=== PATIENT | male | born 1950 | race Caucasian/White ===

== ENCOUNTER → 2017-08-18 | Outpatient (CLI) | payer MEDICARE, SELFPAY ==
[~2017-08-18] MED LIST: CEPH500 PO; CLOZ100 PO; DOXY100C PO; GABA-529 PO; LITH300C3 PO
[2017-08-24 14:32] LABS: HEMATOCRIT 47.1 % (41-53); HEMOGLOBIN 15.4 g/dL (13.5-17.5); MEAN CORPUSCULAR HEMOGLOBIN 30.1 pg (26.0-34.0); MEAN CORPUSCULAR HGB CONC 32.7 G/dL (31.0-37.0); MEAN CORPUSCULAR VOLUME 92 fL (80-100); RED BLOOD CELL COUNT(AUTO) 5.11 MIL/uL (4.50-5.90)
[2017-08-24 14:33] LABS: BASOPHILS % (AUTO) 0.3 % (0.0-2.0); EOSINOPHILS % (AUTO) 0.1 % (1.0-6.0); LYMPHOCYTES # (AUTO) 1.4 K/uL (1.0-4.8); LYMPHOCYTES % (AUTO) 19.9 % (22.0-44.0); MONOCYTES # (AUTO) 0.7 K/uL (0.1-1.0); MONOCYTES % (AUTO) 9.2 % (2.0-9.0); NEUTROPHILS # (AUTO) 5.1 K/uL (1.8-7.7); NEUTROPHILS % (AUTO) 70.5 % (40.0-70.0); PLATELET COUNT (AUTO) 174 K/uL (150-450); RED CELL DISTRIBUTION WIDTH 18.2 % (11.5-14.5)
== END | disposition home or self-care (01) ==
LOC: LABPV 10:45
DX: F25.9 Schizoaffective disorder, unspecified (principal)

== ENCOUNTER → 2017-09-30 | Outpatient (CLI) | payer MEDICARE ==
[~2017-09-30] VITALS: Ht 167.6 cm; Wt 85.0 kg
[2017-09-30 14:35] VITALS: BP 138/75
== END | disposition home or self-care (01) ==
LOC: SRCNTR 14:33
PROVIDERS: ATTEND Internal Medicine Critical Care Medicine
DX: J96.11 Chronic respiratory failure with hypoxia (principal); F25.1 Schizoaffective disorder, depressive type; E78.1 Pure hyperglyceridemia; N40.0 Benign prostatic hyperplasia without lower urinary tract symptoms; K59.00 Constipation, unspecified; E11.9 Type 2 diabetes mellitus without complications
CPT/HCPCS: G0463

== ENCOUNTER → 2017-09-30 | Outpatient (CLI) | payer MEDICARE | END | disposition home or self-care (01) | LOC: RADPV 15:18 | PROVIDERS: ATTEND Internal Medicine Critical Care Medicine | DX: R91.8 Other nonspecific abnormal finding of lung field (principal) | CPT/HCPCS: 71046 ==

== ENCOUNTER → 2017-11-26 | Outpatient (CLI) | payer MEDICARE ==
[2017-11-26 13:13] VITALS: BP 117/55
== END | disposition home or self-care (01) ==
LOC: SRCNTR 12:52
PROVIDERS: ATTEND Internal Medicine Critical Care Medicine
DX: J96.11 Chronic respiratory failure with hypoxia (principal); R91.8 Other nonspecific abnormal finding of lung field; F25.1 Schizoaffective disorder, depressive type; E78.1 Pure hyperglyceridemia; E11.9 Type 2 diabetes mellitus without complications; N40.0 Benign prostatic hyperplasia without lower urinary tract symptoms; K59.00 Constipation, unspecified; I11.0 Hypertensive heart disease with heart failure; I50.9 Heart failure, unspecified
CPT/HCPCS: G0463

== ENCOUNTER → 2018-01-05 | Outpatient (CLI) | payer MEDICARE | END | disposition home or self-care (01) | LOC: MSR 14:34 | PROVIDERS: ATTEND Internal Medicine Critical Care Medicine | DX: J43.9 Emphysema, unspecified (principal); R91.8 Other nonspecific abnormal finding of lung field; I70.90 Unspecified atherosclerosis | CPT/HCPCS: 71250 ==

== ENCOUNTER → 2018-01-12 | Outpatient (CLI) | payer MEDICARE | END | disposition home or self-care (01) | LOC: RESP 13:37 | PROVIDERS: ATTEND Internal Medicine Critical Care Medicine | DX: J44.9 Chronic obstructive pulmonary disease, unspecified (principal) | CPT/HCPCS: 94010; 94726; 94727; 94729 ==

== ENCOUNTER → 2018-04-13 | Outpatient (CLI) | payer MEDICARE ==
[~2018-04-13] VITALS: Ht 175.3 cm; Wt 83.5 kg
[2018-04-13 13:45] VITALS: BP 110/57
== END | disposition home or self-care (01) ==
LOC: SRCNTR 13:27
PROVIDERS: ATTEND Internal Medicine Critical Care Medicine
DX: J96.11 Chronic respiratory failure with hypoxia (principal); Z23 Encounter for immunization; R91.8 Other nonspecific abnormal finding of lung field; F25.1 Schizoaffective disorder, depressive type; E11.9 Type 2 diabetes mellitus without complications; N40.0 Benign prostatic hyperplasia without lower urinary tract symptoms; K59.00 Constipation, unspecified; F17.210 Nicotine dependence, cigarettes, uncomplicated
CPT/HCPCS: 90471; 90686; G0463

== ENCOUNTER → 2018-06-16 | Outpatient (CLI) | payer MEDICARE ==
[~2018-06-16] VITALS: Ht 175.3 cm; Wt 83.5 kg
[2018-06-16 16:19] VITALS: BP 143/68
== END | disposition home or self-care (01) ==
LOC: SRCNTR 15:46
PROVIDERS: ATTEND Internal Medicine Critical Care Medicine
DX: J96.11 Chronic respiratory failure with hypoxia (principal); J18.9 Pneumonia, unspecified organism; R91.8 Other nonspecific abnormal finding of lung field; F25.1 Schizoaffective disorder, depressive type; E78.1 Pure hyperglyceridemia; E11.9 Type 2 diabetes mellitus without complications; N40.0 Benign prostatic hyperplasia without lower urinary tract symptoms; K59.00 Constipation, unspecified
CPT/HCPCS: G0463

== ENCOUNTER → 2018-09-24 | Outpatient (CLI) | payer MEDICARE ==
[~2018-09-24] VITALS: Ht 167.6 cm; Wt 81.0 kg
[2018-09-24 14:14] VITALS: BP 121/70
== END | disposition home or self-care (01) ==
LOC: SRCNTR 13:24
PROVIDERS: ATTEND Internal Medicine Critical Care Medicine
DX: J96.90 Respiratory failure, unspecified, unspecified whether with hypoxia or hypercapnia (principal); J18.9 Pneumonia, unspecified organism; F25.9 Schizoaffective disorder, unspecified; E78.1 Pure hyperglyceridemia; E11.8 Type 2 diabetes mellitus with unspecified complications; N40.0 Benign prostatic hyperplasia without lower urinary tract symptoms; K59.00 Constipation, unspecified
CPT/HCPCS: G0463

== ENCOUNTER → 2018-10-01 | Outpatient (CLI) | payer MEDICARE, OTHER | END | disposition home or self-care (01) | LOC: RADMN 09:01 | PROVIDERS: ATTEND Internal Medicine Critical Care Medicine | DX: J43.2 Centrilobular emphysema (principal); R91.8 Other nonspecific abnormal finding of lung field; I25.10 Atherosclerotic heart disease of native coronary artery without angina pectoris; I70.0 Atherosclerosis of aorta | CPT/HCPCS: 71250 ==

== ENCOUNTER 2019-03-09 11:34 | Inpatient (IN) | payer MEDICARE, OTHER ==
[~2019-03-09] VITALS: Ht 170.2 cm; Wt 78.0 kg
[2019-03-09] MEDS ORDERED: TAMS-1 PO (11:40)
[2019-03-09] MEDS ORDERED: ATOR40TA28 PO (11:40)
[2019-03-09] MEDS ORDERED: LEVO750T46 PO (11:40)
[2019-03-09] MEDS ORDERED: FURO40 PO (11:40)
[2019-03-09] MEDS ORDERED: DIVA-78 PO (11:40)
[2019-03-09] MEDS ORDERED: PRED20 PO (11:40)
[2019-03-09] MEDS ORDERED: ASPIRIN 81 MG CHEWABLE TABLET PO ONE (12:00)
[2019-03-09] MEDS ORDERED: ALBUTEROL SULFATE 2.5 MG/0.5 ML NEB SOLUTION NEB ONE (12:00)
[2019-03-09] MEDS ORDERED: MethylPREDNISolone SOD SUCC 125 MG/2 ML VIAL IVP ONE (12:00)
[2019-03-09] MEDS ORDERED: IPRATROPIUM BROMIDE 0.5 MG/2.5 ML NEB SOLUTION NEB ONE (12:00)
[2019-03-09 13:16] LABS: BASOPHILS % (AUTO) 0.1 % (0.0-2.0); EOSINOPHILS % (AUTO) 0 % (1.0-6.0); HEMATOCRIT 36.6 % (41-53); HEMOGLOBIN 11.9 g/dL (13.5-17.5); LYMPHOCYTES # (AUTO) 0.5 K/uL (1.0-4.8); LYMPHOCYTES % (AUTO) 5.4 % (22.0-44.0); MEAN CORPUSCULAR HEMOGLOBIN 30.2 pg (26.0-34.0); MEAN CORPUSCULAR HGB CONC 32.4 G/dL (31.0-37.0); MEAN CORPUSCULAR VOLUME 93 fL (80-100); MONOCYTES # (AUTO) 0.2 K/uL (0.1-1.0); MONOCYTES % (AUTO) 2.4 % (2.0-9.0); PLATELET COUNT (AUTO) 318 K/uL (150-450); RED BLOOD CELL COUNT(AUTO) 3.92 MIL/uL (4.50-5.90); RED CELL DISTRIBUTION WIDTH 14.4 % (11.5-14.5)
[2019-03-09 13:22] LABS: NEUTROPHILS % (AUTO) 92.1 % (40.0-70.0)
[2019-03-09 13:29] LABS: ANION GAP 3 mmol/L (8-16); CALCIUM, TOTAL 9.8 mg/dL (8.8-10.5); CARBON DIOXIDE 38 mmol/L (22-29); CHLORIDE 95 mmol/L (98-107); CREATININE 0.98 mg/dL (0.60-1.30); GLOMERULAR FILTR. RATE CALC > 60 mL/min (>60); GLUCOSE,RANDOM 109 mg/dL (70-110); POTASSIUM 4.4 mmol/L (3.5-5.1); SODIUM SERUM 136 mmol/L (136-145); UREA NITROGEN, BLOOD 12 mg/dL (7-18)
[2019-03-09 13:42] LABS: B-TYPE NATRIURETIC PEPTIDE 97 pg/mL (0-100)
[2019-03-09 13:54] LABS: ALANINE AMINOTRANSFERASE 24 U/L (12-78); ALBUMIN 2.7 g/dL (3.4-5.0); ALKALINE PHOSPHATASE 77 U/L (46-116); ASPARTATE AMINOTRANSFERASE 20 U/L (15-37); BILIRUBIN,TOTAL 0.3 mg/dL (0.1-1.0); CREATINE KINASE, TOTAL ONLY 89 U/L (39-308)
[2019-03-09] MEDS ORDERED: 0.9% SODIUM CHLORIDE 10 ML SYRINGE IVP PRN (15:30)
[2019-03-09] MEDS ORDERED: ONDANSETRON HCL 4 MG/2 ML VIAL IVP PRN ×2 (15:30→16:00)
[2019-03-09] MEDS ORDERED: ACETAMINOPHEN 325 MG TABLET PO PRN (15:30)
[2019-03-09 15:32] LABS: APPEARANCE,URINE CLEAR (CLEAR); BILIRUBIN,URINE NEGATIVE (NEGATIVE); GLUCOSE, URINE (UA) NEGATIVE (NEGATIVE); KETONES,URINE TRACE mg/dL (NEGATIVE); LEUKOCYTE ESTERASE ,URINE NEGATIVE (NEGATIVE); NITRATE,URINE NEGATIVE (NEGATIVE); OCCULT BLOOD,URINE NEGATIVE (NEGATIVE); PROTEIN,URINE SEE CONFIRM (NEGATIVE); UROBILINOGEN,URINE 0.2 mg/dL (<=1.0)
[2019-03-09 15:41] LABS: SULFOSALICYLIC ACID,URINE 3+ (Negative)
[2019-03-09 15:44] LABS: BACTERIA,URINE None Seen /HPF (None Seen); RBC,URINE None Seen /HPF (0-2); SQUAMOUS EPITHELIAL CELL,UR Rare /LPF (None Seen); WBC,URINE None Seen /HPF (0-5)
[2019-03-09] MEDS ORDERED: BISACODYL 10 MG RECTAL RECTAL SUPPOSITORY PR PRN (16:00)
[2019-03-09] MEDS ORDERED: MAGNESIUM HYDROXIDE SUSPENSION 30 ML UDCUP PO PRN (16:00)
[2019-03-09] MEDS: CefTRIAXone 1 GM/DEXTROSE 50 ML IV SCH (16:56)
[2019-03-09 17:37] LABS: ABG A-A DIFF O2 77.4 mmHg (10-20.0); ABG BASE EXCESS 12.5 mmol/L (-2.0-3.0); ABG CARBOXYHEMOGLOBIN 0.9 % (0.0-1.5); ABG HCO3 34.3 mmol/L (22.0-26.0); ABG METHEMOGLOBIN 0.3 % (0.0-1.5); ABG OXYGEN CONTENT 14.9 mL/dL (15.0-23.0); ABG OXYGEN SATURATION 90.2 % (95.0-98.0); ABG OXYHEMOGLOBIN 89.1 % (94.0-100.0); ABG PCO2 55 mmHg (35-45); ABG PH 7.445 (7.35-7.450); ABG TOTAL HEMOGLOBIN 11.9 G/dL (12.0-18.0); PO2, ARTERIAL BG 57.9 mmHg (79.0-87.0); SOURCE, BLOOD GAS ARTERIAL; TEMPERATURE, FAHRENHEIT, BG 98.6 FAHREN (96.0-98.6)
[2019-03-09 17:38] LABS: O2 DEVICE,BLOOD GAS CANNULA (ROOM AIR); SITE, BLOOD GAS RT RADIAL
[2019-03-09 18:25] VITALS: BP 127/86
[2019-03-09] MEDS ORDERED: SODIUM CHLORIDE 0.9% 1,000 ML IV ONE (18:26)
[2019-03-09] MEDS: AZITHROMYCIN 500 MG/NS 250 ML IV SCH (19:04)
[2019-03-09] MEDS: IPRATROPIUM BROMIDE 0.5 MG/2.5 ML NEB SOLUTION NEB PRN (19:59)
[2019-03-09] MEDS: ALBUTEROL SULFATE 2.5 MG/0.5 ML NEB SOLUTION NEB PRN (19:59)
[2019-03-09 20:03] VITALS: BP 143/87
[2019-03-09 21:04] VITALS: BP 138/85
[2019-03-09 23:13] VITALS: BP 133/73
[2019-03-10] MEDS: ALBUTEROL SULFATE 2.5 MG/0.5 ML NEB SOLUTION NEB PRN (02:15)
[2019-03-10] MEDS: IPRATROPIUM BROMIDE 0.5 MG/2.5 ML NEB SOLUTION NEB PRN (02:15)
[2019-03-10 06:28] VITALS: BP 131/97
[2019-03-10 07:13] VITALS: BP 162/92
[2019-03-10] MEDS: PANTOPRAZOLE SODIUM 40 MG DR TABLET PO SCH (09:15)
[2019-03-10] MEDS: ENOXAPARIN SODIUM 40 MG/0.4 ML PF SYRINGE SQ SCH (09:15)
[2019-03-10] MEDS: TAMSULOSIN HCL 0.4 MG CAPSULE PO SCH (09:16)
[2019-03-10] MEDS: NICOTINE 21 MG/24 HOUR PATCH TD SCH (09:29)
[2019-03-10 11:05] VITALS: BP 146/86
[2019-03-10 13:34] LABS: AMPHET/METH SCREEN,URINE NEGATIVE (NEGATIVE); BARBITURATE SCREEN, URINE NEGATIVE (NEGATIVE); BENZODIAZEPINES SCREEN,URINE NEGATIVE (NEGATIVE); CANNABINOID SCREEN,URINE NEGATIVE (NEGATIVE); COCAINE SCREEN,URINE NEGATIVE (NEGATIVE); METHADONE SCREEN, URINE NEGATIVE (NEGATIVE); OPIATE SCREEN,URINE NEGATIVE (NEGATIVE)
[2019-03-10 13:36] LABS: PHENCYCLIDINE SCREEN,URINE NEGATIVE (NEGATIVE)
[2019-03-10 15:25] VITALS: BP 131/61
[2019-03-10] MEDS ORDERED: GABAPENTIN 400 MG CAPSULE PO PRN (16:30)
[2019-03-10] MEDS: GABAPENTIN 300 MG CAPSULE PO SCH ×2 (17:09→20:29)
[2019-03-10] MEDS: CefTRIAXone 1 GM/DEXTROSE 50 ML IV SCH (17:09)
[2019-03-10] MEDS: AZITHROMYCIN 500 MG/NS 250 ML IV SCH (18:18)
[2019-03-10 19:33] VITALS: BP 136/74
[2019-03-10] MEDS: ACETAMINOPHEN 325 MG TABLET PO PRN (20:29)
[2019-03-10] MEDS: CloZAPine 100 MG TABLET PO SCH (20:29)
[2019-03-10] MEDS: LITHIUM CARBONATE 300 MG CAPSULE PO SCH (20:29)
[2019-03-10] MEDS: DIVALPROEX SODIUM 500 MG DR TABLET PO SCH (20:29)
[2019-03-10 23:35] VITALS: BP 119/76
[2019-03-11 04:20] VITALS: BP 101/64
[2019-03-11] MEDS: ALBUTEROL SULFATE 2.5 MG/0.5 ML NEB SOLUTION NEB PRN ×2 (07:11→21:02)
[2019-03-11] MEDS: IPRATROPIUM BROMIDE 0.5 MG/2.5 ML NEB SOLUTION NEB PRN ×2 (07:11→21:02)
[2019-03-11 07:20] LABS: LITHIUM 0.3 mmol/L (0.60-1.20)
[2019-03-11 08:03] VITALS: BP 140/87
[2019-03-11] MEDS: ENOXAPARIN SODIUM 40 MG/0.4 ML PF SYRINGE SQ SCH (09:00)
[2019-03-11 09:20] LABS: PROTHROMBIN TIME 10.5 SEC (9.4-11.6)
[2019-03-11] MEDS: TAMSULOSIN HCL 0.4 MG CAPSULE PO SCH (10:18)
[2019-03-11] MEDS: FUROSEMIDE 40 MG TABLET PO SCH (10:19)
[2019-03-11] MEDS: PANTOPRAZOLE SODIUM 40 MG DR TABLET PO SCH (10:19)
[2019-03-11] MEDS: GABAPENTIN 300 MG CAPSULE PO SCH ×3 (10:19→21:04)
[2019-03-11] MEDS: ATORVASTATIN CALCIUM 40 MG TABLET PO SCH (10:19)
[2019-03-11] MEDS: NICOTINE 21 MG/24 HOUR PATCH TD SCH (10:21)
[2019-03-11 10:46] LABS: GLUCOMETER DEV NAME(LOC) 5S.1; GLUCOSE,POINT OF CARE 103 MG/DL (70-110)
[2019-03-11 11:05] VITALS: BP 146/72
[2019-03-11] MEDS ORDERED: GABA-531 PO (12:34)
[2019-03-11] MEDS: CefTRIAXone 1 GM/DEXTROSE 50 ML IV SCH (15:16)
[2019-03-11 16:10] VITALS: BP 132/75
[2019-03-11] MEDS: AZITHROMYCIN 500 MG/NS 250 ML IV SCH (16:14)
[2019-03-11 20:01] VITALS: BP 136/76
[2019-03-11] MEDS: HEPARIN SODIUM,PORCINE 5,000 UNITS/ML VIAL SQ SCH (21:04)
[2019-03-11] MEDS: LITHIUM CARBONATE 300 MG CAPSULE PO SCH (21:04)
[2019-03-11] MEDS: CloZAPine 100 MG TABLET PO SCH (21:04)
[2019-03-11] MEDS: DIVALPROEX SODIUM 500 MG DR TABLET PO SCH (21:04)
[2019-03-12] VITALS (7 sets, daily range): BP systolic 128–139; BP diastolic 72–85
[2019-03-12] MEDS: IPRATROPIUM BROMIDE 0.5 MG/2.5 ML NEB SOLUTION NEB PRN ×3 (02:37→19:36)
[2019-03-12] MEDS: ALBUTEROL SULFATE 2.5 MG/0.5 ML NEB SOLUTION NEB PRN ×3 (02:37→19:36)
[2019-03-12] MEDS: TAMSULOSIN HCL 0.4 MG CAPSULE PO SCH (08:19)
[2019-03-12] MEDS: FUROSEMIDE 40 MG TABLET PO SCH (08:20)
[2019-03-12] MEDS: ATORVASTATIN CALCIUM 40 MG TABLET PO SCH (08:20)
[2019-03-12] MEDS: NICOTINE 21 MG/24 HOUR PATCH TD SCH (08:20)
[2019-03-12] MEDS: GABAPENTIN 300 MG CAPSULE PO SCH ×3 (08:20→20:30)
[2019-03-12] MEDS: PANTOPRAZOLE SODIUM 40 MG DR TABLET PO SCH (08:20)
[2019-03-12] MEDS: HEPARIN SODIUM,PORCINE 5,000 UNITS/ML VIAL SQ SCH ×2 (08:20→20:31)
[2019-03-12 12:11] LABS: LEGIONELLA PNEUMO AG URINE Negative (Negative); ORGANISM ID Not indicated.; S PNEUMO SOURCE Urine; STREP PNEUMONIAE AG URINE Negative (Negative); STREP.PNEUMO BODY FLUID CULT. Not Indicated
[2019-03-12] MEDS ORDERED: SODIUM CHLORIDE 0.9% 250 ML IV ONE (15:02)
[2019-03-12] MEDS: CefTRIAXone 1 GM/DEXTROSE 50 ML IV SCH (15:14)
[2019-03-12] MEDS: AZITHROMYCIN 500 MG/NS 250 ML IV SCH (16:27)
[2019-03-12] MEDS: CloZAPine 100 MG TABLET PO SCH (20:30)
[2019-03-12] MEDS: LITHIUM CARBONATE 300 MG CAPSULE PO SCH (20:30)
[2019-03-12] MEDS: DIVALPROEX SODIUM 500 MG DR TABLET PO SCH (20:30)
[2019-03-13] MEDS: ALBUTEROL SULFATE 2.5 MG/0.5 ML NEB SOLUTION NEB PRN ×3 (02:24→19:51)
[2019-03-13] MEDS: IPRATROPIUM BROMIDE 0.5 MG/2.5 ML NEB SOLUTION NEB PRN ×3 (02:24→19:51)
[2019-03-13 05:25] VITALS: BP 126/69
[2019-03-13 07:45] VITALS: BP 119/72
[2019-03-13] MEDS: PANTOPRAZOLE SODIUM 40 MG DR TABLET PO SCH (09:15)
[2019-03-13] MEDS: NICOTINE 21 MG/24 HOUR PATCH TD SCH (09:15)
[2019-03-13] MEDS: ATORVASTATIN CALCIUM 40 MG TABLET PO SCH (09:16)
[2019-03-13] MEDS: TAMSULOSIN HCL 0.4 MG CAPSULE PO SCH (09:16)
[2019-03-13] MEDS: HEPARIN SODIUM,PORCINE 5,000 UNITS/ML VIAL SQ SCH (09:16)
[2019-03-13] MEDS: GABAPENTIN 300 MG CAPSULE PO SCH ×3 (09:16→21:36)
[2019-03-13] MEDS: FUROSEMIDE 40 MG TABLET PO SCH (09:16)
[2019-03-13 11:35] VITALS: BP 127/74
[2019-03-13] MEDS: CefTRIAXone 1 GM/DEXTROSE 50 ML IV SCH (15:33)
[2019-03-13 15:37] VITALS: BP 130/78
[2019-03-13] MEDS: AZITHROMYCIN 500 MG/NS 250 ML IV SCH (17:10)
[2019-03-13 20:48] VITALS: BP 121/72
[2019-03-13] MEDS: LITHIUM CARBONATE 300 MG CAPSULE PO SCH (21:36)
[2019-03-13] MEDS: DIVALPROEX SODIUM 500 MG DR TABLET PO SCH (21:36)
[2019-03-13] MEDS: CloZAPine 100 MG TABLET PO SCH (21:36)
[2019-03-14 00:22] VITALS: BP 105/68
[2019-03-14] MEDS: IPRATROPIUM BROMIDE 0.5 MG/2.5 ML NEB SOLUTION NEB PRN ×5 (02:32→20:28)
[2019-03-14] MEDS: ALBUTEROL SULFATE 2.5 MG/0.5 ML NEB SOLUTION NEB PRN ×5 (02:32→20:28)
[2019-03-14 04:49] VITALS: BP 106/60
[2019-03-14 07:08] VITALS: BP 103/60
[2019-03-14] MEDS: ATORVASTATIN CALCIUM 40 MG TABLET PO SCH (09:00)
[2019-03-14] MEDS: GABAPENTIN 300 MG CAPSULE PO SCH ×3 (09:00→20:58)
[2019-03-14] MEDS: TAMSULOSIN HCL 0.4 MG CAPSULE PO SCH (09:00)
[2019-03-14] MEDS: NICOTINE 21 MG/24 HOUR PATCH TD SCH ×2 (09:00→17:29)
[2019-03-14] MEDS: FUROSEMIDE 40 MG TABLET PO SCH (09:00)
[2019-03-14] MEDS: PANTOPRAZOLE SODIUM 40 MG DR TABLET PO SCH (09:00)
[2019-03-14] MEDS ORDERED: MIDAZOLAM HCL 2 MG/2 ML VIAL ONE (09:23)
[2019-03-14] MEDS ORDERED: FentaNYL CITRATE-PF 100 MCG/2 ML VIAL ONE (09:23)
[2019-03-14] MEDS ORDERED: GELATIN SPONGE,ABSORBABLE 12-7 MM TP ONE (09:23)
[2019-03-14] MEDS ORDERED: MIDAZOLAM HCL 2 MG/2 ML VIAL IVP ONE (10:30)
[2019-03-14] MEDS ORDERED: FentaNYL CITRATE-PF 100 MCG/2 ML VIAL IVP ONE (10:30)
[2019-03-14 13:06] VITALS: BP 126/79
[2019-03-14] MEDS: AZITHROMYCIN 500 MG/NS 250 ML IV SCH (16:16)
[2019-03-14] MEDS: CefTRIAXone 1 GM/DEXTROSE 50 ML IV SCH (16:16)
[2019-03-14 17:20] VITALS: BP 118/72
[2019-03-14 20:26] VITALS: BP 129/73
[2019-03-14] MEDS: CloZAPine 100 MG TABLET PO SCH (20:58)
[2019-03-14] MEDS: LITHIUM CARBONATE 300 MG CAPSULE PO SCH (20:59)
[2019-03-14] MEDS: DIVALPROEX SODIUM 250 MG DR TABLET PO SCH (20:59)
[2019-03-14] MEDS ORDERED: DIVALPROEX SODIUM 250 MG DR TABLET PO SCH (21:00)
[2019-03-15] VITALS (7 sets, daily range): BP systolic 117–132; BP diastolic 61–80
[2019-03-15] MEDS: ALBUTEROL SULFATE 2.5 MG/0.5 ML NEB SOLUTION NEB PRN ×4 (02:15→18:47)
[2019-03-15] MEDS: IPRATROPIUM BROMIDE 0.5 MG/2.5 ML NEB SOLUTION NEB PRN ×4 (02:15→18:47)
[2019-03-15] MEDS: PANTOPRAZOLE SODIUM 40 MG DR TABLET PO SCH (08:23)
[2019-03-15] MEDS: TAMSULOSIN HCL 0.4 MG CAPSULE PO SCH (08:23)
[2019-03-15] MEDS: FUROSEMIDE 40 MG TABLET PO SCH (08:23)
[2019-03-15] MEDS: ATORVASTATIN CALCIUM 40 MG TABLET PO SCH (08:23)
[2019-03-15] MEDS: DIVALPROEX SODIUM 250 MG DR TABLET PO SCH ×4 (08:32→20:58)
[2019-03-15] MEDS: LITHIUM CARBONATE 300 MG CAPSULE PO SCH ×2 (08:34→20:58)
[2019-03-15] MEDS: GABAPENTIN 300 MG CAPSULE PO SCH ×3 (09:00→20:59)
[2019-03-15] MEDS: CefTRIAXone 1 GM/DEXTROSE 50 ML IV SCH (16:33)
[2019-03-15] MEDS: AZITHROMYCIN 500 MG/NS 250 ML IV SCH (18:11)
[2019-03-15] MEDS: CloZAPine 100 MG TABLET PO SCH (20:58)
[2019-03-16] MEDS: ALBUTEROL SULFATE 2.5 MG/0.5 ML NEB SOLUTION NEB PRN ×4 (01:11→17:21)
[2019-03-16] MEDS: IPRATROPIUM BROMIDE 0.5 MG/2.5 ML NEB SOLUTION NEB PRN ×4 (01:11→17:21)
[2019-03-16 04:22] VITALS: BP 137/74
[2019-03-16 07:10] LABS: BASOPHILS % (AUTO) 0.2 % (0.0-2.0); EOSINOPHILS % (AUTO) 0 % (1.0-6.0); HEMATOCRIT 32.4 % (41-53); HEMOGLOBIN 10.8 g/dL (13.5-17.5); LYMPHOCYTES # (AUTO) 1.2 K/uL (1.0-4.8); LYMPHOCYTES % (AUTO) 11.6 % (22.0-44.0); MEAN CORPUSCULAR HEMOGLOBIN 31.1 pg (26.0-34.0); MEAN CORPUSCULAR HGB CONC 33.2 G/dL (31.0-37.0); MEAN CORPUSCULAR VOLUME 94 fL (80-100); MONOCYTES # (AUTO) 0.7 K/uL (0.1-1.0); MONOCYTES % (AUTO) 6.9 % (2.0-9.0); NEUTROPHILS # (AUTO) 8.1 K/uL (1.8-7.7); NEUTROPHILS % (AUTO) 81.3 % (40.0-70.0); PLATELET COUNT (AUTO) 274 K/uL (150-450); RED BLOOD CELL COUNT(AUTO) 3.46 MIL/uL (4.50-5.90); RED CELL DISTRIBUTION WIDTH 14.6 % (11.5-14.5)
[2019-03-16 07:14] VITALS: BP 131/76
[2019-03-16 07:26] LABS: LITHIUM 0.47 mmol/L (0.60-1.20)
[2019-03-16] MEDS: ATORVASTATIN CALCIUM 40 MG TABLET PO SCH (08:47)
[2019-03-16] MEDS: GABAPENTIN 300 MG CAPSULE PO SCH ×2 (08:47→16:14)
[2019-03-16] MEDS: PANTOPRAZOLE SODIUM 40 MG DR TABLET PO SCH (08:48)
[2019-03-16] MEDS: FUROSEMIDE 40 MG TABLET PO SCH (08:48)
[2019-03-16] MEDS: TAMSULOSIN HCL 0.4 MG CAPSULE PO SCH (08:48)
[2019-03-16] MEDS: LITHIUM CARBONATE 300 MG CAPSULE PO SCH (10:30)
[2019-03-16] MEDS: DIVALPROEX SODIUM 250 MG DR TABLET PO SCH ×3 (10:30→16:14)
[2019-03-16] MEDS: NICOTINE 21 MG/24 HOUR PATCH TD SCH (10:31)
[2019-03-16 11:24] VITALS: BP 124/60
[2019-03-16] MEDS: ACETAMINOPHEN 325 MG TABLET PO PRN (13:22)
[2019-03-16 15:50] VITALS: BP 112/75
[2019-03-16] MEDS: CefTRIAXone 1 GM/DEXTROSE 50 ML IV SCH (16:14)
[2019-03-16] MEDS: AZITHROMYCIN 500 MG/NS 250 ML IV SCH (16:15)
[2019-03-16 19:35] VITALS: BP 132/72
== END 2019-03-16 19:55 | DRG 70 ==
LOC: IOPBV 11:35 → 6N 17:30 → 5S 17:45 → 4E 20:36 → 5S 22:31
PROVIDERS: ADMIT Internal Medicine Geriatric Medicine; ATTEND Internal Medicine Geriatric Medicine
PROC: 0BBG3ZX Excision of Left Upper Lung Lobe, Percutaneous Approach, Diagnostic (ICD-10-PCS; principal; 2019-03-14)
DX: G93.40 Encephalopathy, unspecified (principal); J18.9 Pneumonia, unspecified organism; E43 Unspecified severe protein-calorie malnutrition; J44.1 Chronic obstructive pulmonary disease with (acute) exacerbation; J91.8 Pleural effusion in other conditions classified elsewhere; R91.1 Solitary pulmonary nodule; N40.0 Benign prostatic hyperplasia without lower urinary tract symptoms; E78.5 Hyperlipidemia, unspecified; F25.1 Schizoaffective disorder, depressive type; E78.1 Pure hyperglyceridemia; E11.9 Type 2 diabetes mellitus without complications; D64.9 Anemia, unspecified; E78.00 Pure hypercholesterolemia, unspecified; F12.90 Cannabis use, unspecified, uncomplicated; I11.0 Hypertensive heart disease with heart failure; I50.9 Heart failure, unspecified; R06.89 Other abnormalities of breathing; R09.02 Hypoxemia; F17.210 Nicotine dependence, cigarettes, uncomplicated; R59.0 Localized enlarged lymph nodes; Z88.8 Allergy status to other drugs, medicaments and biological substances; Z80.7 Family history of other malignant neoplasms of lymphoid, hematopoietic and related tissues; Z87.01 Personal history of pneumonia (recurrent); Z99.81 Dependence on supplemental oxygen; Z68.26 Body mass index [BMI] 26.0-26.9, adult
CPT/HCPCS: 32405; 36600; 70450; 71250; 80159; 82805; 84145; 87015; 87040; 87070; 87101; 87205; 87206; 87449; 87899; 88305; 93005; 93306; 94640; 96374; 97116; 97162; 97530; J0456; J0696; J1644; J1650; J2250; J2930; J3010; J7030; J7050

== ENCOUNTER → 2019-05-04 | Outpatient (CLI) | payer MEDICARE ==
[~2019-05-04] MED LIST changes: +ATOR40TA28 PO; -CEPH500 PO; +DIVA-78 PO; -DOXY100C PO; +FURO40 PO; -GABA-529 PO; +GABA-531 PO; +LEVO750T46 PO; +PRED20 PO; +TAMS-1 PO
== END | disposition home or self-care (01) ==
LOC: RADMN 14:22
PROVIDERS: ATTEND Internal Medicine Critical Care Medicine
DX: R91.8 Other nonspecific abnormal finding of lung field (principal); J90 Pleural effusion, not elsewhere classified; I25.10 Atherosclerotic heart disease of native coronary artery without angina pectoris
CPT/HCPCS: 71250

== ENCOUNTER → 2019-07-15 | Outpatient (CLI) | payer MEDICARE, OTHER ==
[~2019-07-15] VITALS: Ht 167.6 cm; Wt 83.0 kg
[~2019-07-15] MED LIST changes: -LEVO750T46 PO; +LEVO750T68 PO
[2019-07-15 11:45] VITALS: BP 114/83
== END | disposition home or self-care (01) ==
LOC: SRCNTR 11:44
PROVIDERS: ATTEND Internal Medicine Critical Care Medicine
DX: J44.9 Chronic obstructive pulmonary disease, unspecified (principal); E11.9 Type 2 diabetes mellitus without complications; Z79.899 Other long term (current) drug therapy
CPT/HCPCS: G0463

== ENCOUNTER → 2019-07-21 | Outpatient (CLI) | payer MEDICARE, OTHER | END | disposition home or self-care (01) | LOC: RADMN 13:55 | PROVIDERS: ATTEND Internal Medicine Critical Care Medicine | DX: J44.9 Chronic obstructive pulmonary disease, unspecified (principal); I70.90 Unspecified atherosclerosis; M46.00 Spinal enthesopathy, site unspecified; R91.8 Other nonspecific abnormal finding of lung field; L72.3 Sebaceous cyst | CPT/HCPCS: 71250 ==

== ENCOUNTER → 2019-08-01 | Outpatient (CLI) | payer MEDICARE ==
[2019-08-02 16:25] LABS: HEMATOCRIT 37.6 % (41-53); HEMOGLOBIN 12.8 g/dL (13.5-17.5); LYMPHOCYTES % (AUTO) 9.8 % (22.0-44.0); MEAN CORPUSCULAR HEMOGLOBIN 31.3 pg (26.0-34.0); MEAN CORPUSCULAR HGB CONC 34.1 G/dL (31.0-37.0); MEAN CORPUSCULAR VOLUME 92 fL (80-100); NEUTROPHILS % (AUTO) 84.1 % (40.0-70.0); PLATELET COUNT (AUTO) 175 K/uL (150-450); RED BLOOD CELL COUNT(AUTO) 4.08 MIL/uL (4.50-5.90); RED CELL DISTRIBUTION WIDTH 14.2 % (11.5-14.5)
[2019-08-02 16:26] LABS: BASOPHILS % (AUTO) 0.1 % (0.0-2.0); EOSINOPHILS % (AUTO) 0 % (1.0-6.0); MONOCYTES # (AUTO) 0.6 K/uL (0.1-1.0); NEUTROPHILS # (AUTO) 8.5 K/uL (1.8-7.7)
== END | disposition home or self-care (01) ==
LOC: LABMN 15:05
PROVIDERS: ATTEND Psychiatry & Neurology Psychiatry
DX: F25.9 Schizoaffective disorder, unspecified (principal); Z88.8 Allergy status to other drugs, medicaments and biological substances

== ENCOUNTER → 2019-08-12 | Outpatient (CLI) | payer MEDICARE | END | disposition home or self-care (01) | LOC: LABPV 12:40 | PROVIDERS: ATTEND Psychiatry & Neurology Psychiatry | DX: F25.0 Schizoaffective disorder, bipolar type (principal) | CPT/HCPCS: 80159 ==

== ENCOUNTER → 2019-08-29 | Outpatient (CLI) | payer MEDICARE ==
[2019-08-29 17:01] LABS: BASOPHILS % (AUTO) 0.3 % (0.0-2.0); EOSINOPHILS % (AUTO) 0 % (1.0-6.0); HEMATOCRIT 37.9 % (41-53); HEMOGLOBIN 12.4 g/dL (13.5-17.5); LYMPHOCYTES # (AUTO) 1.6 K/uL (1.0-4.8); LYMPHOCYTES % (AUTO) 18.4 % (22.0-44.0); MEAN CORPUSCULAR HEMOGLOBIN 30.7 pg (26.0-34.0); MEAN CORPUSCULAR HGB CONC 32.8 G/dL (31.0-37.0); MEAN CORPUSCULAR VOLUME 94 fL (80-100); MONOCYTES # (AUTO) 0.6 K/uL (0.1-1.0); MONOCYTES % (AUTO) 7.5 % (2.0-9.0); NEUTROPHILS # (AUTO) 6.3 K/uL (1.8-7.7); NEUTROPHILS % (AUTO) 73.8 % (40.0-70.0); PLATELET COUNT (AUTO) 200 K/uL (150-450); RED BLOOD CELL COUNT(AUTO) 4.05 MIL/uL (4.50-5.90); RED CELL DISTRIBUTION WIDTH 14.4 % (11.5-14.5)
== END | disposition home or self-care (01) ==
LOC: LABPV 12:00
PROVIDERS: ATTEND Psychiatry & Neurology Psychiatry
DX: F25.9 Schizoaffective disorder, unspecified (principal)

== ENCOUNTER → 2019-09-27 | Outpatient (CLI) | payer MEDICARE, MEDICAID ==
[2019-09-27 13:47] LABS: BASOPHILS % (AUTO) 0.3 % (0.0-2.0); EOSINOPHILS % (AUTO) 0 % (1.0-6.0); HEMATOCRIT 38.5 % (41-53); HEMOGLOBIN 12.6 g/dL (13.5-17.5); LYMPHOCYTES # (AUTO) 1.4 K/uL (1.0-4.8); LYMPHOCYTES % (AUTO) 18.2 % (22.0-44.0); MEAN CORPUSCULAR HEMOGLOBIN 30.7 pg (26.0-34.0); MEAN CORPUSCULAR HGB CONC 32.7 G/dL (31.0-37.0); MEAN CORPUSCULAR VOLUME 94 fL (80-100); MONOCYTES # (AUTO) 0.5 K/uL (0.1-1.0); MONOCYTES % (AUTO) 5.9 % (2.0-9.0); NEUTROPHILS % (AUTO) 75.6 % (40.0-70.0); PLATELET COUNT (AUTO) 192 K/uL (150-450); RED CELL DISTRIBUTION WIDTH 14.8 % (11.5-14.5)
== END | disposition home or self-care (01) ==
LOC: LABPV 12:24
PROVIDERS: ATTEND Psychiatry & Neurology Psychiatry
DX: F25.9 Schizoaffective disorder, unspecified (principal)

== ENCOUNTER → 2019-11-25 | Outpatient (CLI) | payer MEDICARE, OTHER, SELFPAY ==
[~2019-11-25] MED LIST changes: -CLOZ100 PO; +CLOZ100T32 PO; +GABA-1181 PO; -GABA-531 PO
[2019-11-25 19:09] LABS: BASOPHILS % (AUTO) 0.2 % (0.0-2.0); EOSINOPHILS % (AUTO) 0 % (1.0-6.0); HEMATOCRIT 41.8 % (41-53); HEMOGLOBIN 13.9 g/dL (13.5-17.5); LYMPHOCYTES # (AUTO) 1.6 K/uL (1.0-4.8); LYMPHOCYTES % (AUTO) 16.5 % (22.0-44.0); MEAN CORPUSCULAR HEMOGLOBIN 31.1 pg (26.0-34.0); MEAN CORPUSCULAR HGB CONC 33.1 G/dL (31.0-37.0); MEAN CORPUSCULAR VOLUME 94 fL (80-100); MONOCYTES # (AUTO) 0.7 K/uL (0.1-1.0); MONOCYTES % (AUTO) 7.6 % (2.0-9.0); NEUTROPHILS # (AUTO) 7.1 K/uL (1.8-7.7); NEUTROPHILS % (AUTO) 75.7 % (40.0-70.0); PLATELET COUNT (AUTO) 207 K/uL (150-450); RED BLOOD CELL COUNT(AUTO) 4.45 MIL/uL (4.50-5.90); RED CELL DISTRIBUTION WIDTH 14.8 % (11.5-14.5)
== END | disposition home or self-care (01) ==
LOC: LABMN 10:00
PROVIDERS: ATTEND Psychiatry & Neurology Psychiatry
DX: F25.9 Schizoaffective disorder, unspecified (principal)

== ENCOUNTER → 2019-12-23 | Outpatient (CLI) | payer MEDICARE, OTHER, SELFPAY ==
[~2019-12-23] MED LIST changes: +DIVA-112 PO; -DIVA-78 PO
[2019-12-23 22:34] LABS: BASOPHILS % (AUTO) 0.7 % (0.0-2.0); EOSINOPHILS % (AUTO) 0 % (1.0-6.0); HEMATOCRIT 42.6 % (41-53); LYMPHOCYTES # (AUTO) 1.5 K/uL (1.0-4.8); LYMPHOCYTES % (AUTO) 22.6 % (22.0-44.0); MEAN CORPUSCULAR HGB CONC 32.8 G/dL (31.0-37.0); MEAN CORPUSCULAR VOLUME 95 fL (80-100); MONOCYTES # (AUTO) 0.4 K/uL (0.1-1.0); MONOCYTES % (AUTO) 6.4 % (2.0-9.0); NEUTROPHILS # (AUTO) 4.8 K/uL (1.8-7.7); NEUTROPHILS % (AUTO) 70.3 % (40.0-70.0); PLATELET COUNT (AUTO) 225 K/uL (150-450); RED BLOOD CELL COUNT(AUTO) 4.51 MIL/uL (4.50-5.90); RED CELL DISTRIBUTION WIDTH 14.9 % (11.5-14.5)
== END | disposition home or self-care (01) ==
LOC: LABMN 09:30
PROVIDERS: ATTEND Psychiatry & Neurology Psychiatry
DX: F25.9 Schizoaffective disorder, unspecified (principal)

== ENCOUNTER → 2020-01-20 | Outpatient (CLI) | payer MEDICARE, OTHER ==
[2020-01-20 14:41] LABS: BASOPHILS % (AUTO) 0.4 % (0.0-2.0); EOSINOPHILS % (AUTO) 0 % (1.0-6.0); HEMATOCRIT 42.7 % (41-53); LYMPHOCYTES # (AUTO) 1.3 K/uL (1.0-4.8); LYMPHOCYTES % (AUTO) 18.4 % (22.0-44.0); MEAN CORPUSCULAR HEMOGLOBIN 31.1 pg (26.0-34.0); MEAN CORPUSCULAR HGB CONC 32.9 G/dL (31.0-37.0); MEAN CORPUSCULAR VOLUME 95 fL (80-100); MONOCYTES # (AUTO) 0.5 K/uL (0.1-1.0); MONOCYTES % (AUTO) 6.5 % (2.0-9.0); NEUTROPHILS # (AUTO) 5.2 K/uL (1.8-7.7); NEUTROPHILS % (AUTO) 74.7 % (40.0-70.0); PLATELET COUNT (AUTO) 179 K/uL (150-450); RED BLOOD CELL COUNT(AUTO) 4.51 MIL/uL (4.50-5.90); RED CELL DISTRIBUTION WIDTH 14.8 % (11.5-14.5)
== END | disposition home or self-care (01) ==
LOC: LABPV 10:52
PROVIDERS: ATTEND Psychiatry & Neurology Psychiatry
DX: F25.9 Schizoaffective disorder, unspecified (principal)

== ENCOUNTER → 2020-02-17 | Outpatient (CLI) | payer MEDICARE, OTHER ==
[2020-02-17 16:14] LABS: BASOPHILS % (AUTO) 0.6 % (0.0-2.0); EOSINOPHILS % (AUTO) 0 % (1.0-6.0); HEMATOCRIT 44.4 % (41-53); HEMOGLOBIN 14.6 g/dL (13.5-17.5); LYMPHOCYTES # (AUTO) 1.9 K/uL (1.0-4.8); LYMPHOCYTES % (AUTO) 25.1 % (22.0-44.0); MEAN CORPUSCULAR HEMOGLOBIN 31.3 pg (26.0-34.0); MEAN CORPUSCULAR HGB CONC 32.9 G/dL (31.0-37.0); MEAN CORPUSCULAR VOLUME 95 fL (80-100); MONOCYTES # (AUTO) 0.6 K/uL (0.1-1.0); MONOCYTES % (AUTO) 7.2 % (2.0-9.0); NEUTROPHILS # (AUTO) 5.2 K/uL (1.8-7.7); NEUTROPHILS % (AUTO) 67.1 % (40.0-70.0); PLATELET COUNT (AUTO) 229 K/uL (150-450); RED BLOOD CELL COUNT(AUTO) 4.67 MIL/uL (4.50-5.90); RED CELL DISTRIBUTION WIDTH 15.4 % (11.5-14.5)
== END | disposition home or self-care (01) ==
LOC: LABPV 15:18
PROVIDERS: ATTEND Psychiatry & Neurology Psychiatry
DX: F25.9 Schizoaffective disorder, unspecified (principal)

== ENCOUNTER → 2020-02-21 | Outpatient (CLI) | payer MEDICARE, OTHER ==
[2020-02-21 12:49] LABS: BASOPHILS % (AUTO) 0.4 % (0.0-2.0); EOSINOPHILS % (AUTO) 0 % (1.0-6.0); HEMOGLOBIN 14.6 g/dL (13.5-17.5); LYMPHOCYTES # (AUTO) 1.5 K/uL (1.0-4.8); LYMPHOCYTES % (AUTO) 24.8 % (22.0-44.0); MEAN CORPUSCULAR HEMOGLOBIN 30.9 pg (26.0-34.0); MEAN CORPUSCULAR HGB CONC 32.4 G/dL (31.0-37.0); MEAN CORPUSCULAR VOLUME 95 fL (80-100); MONOCYTES # (AUTO) 0.5 K/uL (0.1-1.0); MONOCYTES % (AUTO) 8.2 % (2.0-9.0); NEUTROPHILS # (AUTO) 4.1 K/uL (1.8-7.7); NEUTROPHILS % (AUTO) 66.6 % (40.0-70.0); PLATELET COUNT (AUTO) 203 K/uL (150-450); RED BLOOD CELL COUNT(AUTO) 4.72 MIL/uL (4.50-5.90); RED CELL DISTRIBUTION WIDTH 15.5 % (11.5-14.5)
[2020-02-21 12:55] LABS: HEMOGLOBIN A1C 5.6 % (3.8-5.6)
[2020-02-21 13:04] LABS: BILIRUBIN,TOTAL 0.3 mg/dL (0.1-1.0); CALCIUM, TOTAL 9.1 mg/dL (8.8-10.5); CHOL/HDL RATIO 2.5 (4.2-7.3); CREATININE 1.22 mg/dL (0.60-1.30); POTASSIUM 4.2 mmol/L (3.5-5.1); TOTAL PROTEIN, SERUM 7.6 g/dL (6.4-8.2)
== END | disposition home or self-care (01) ==
LOC: LABPV 11:07
PROVIDERS: ATTEND Internal Medicine Geriatric Medicine
DX: N40.0 Benign prostatic hyperplasia without lower urinary tract symptoms (principal); E78.5 Hyperlipidemia, unspecified; J44.9 Chronic obstructive pulmonary disease, unspecified; E11.9 Type 2 diabetes mellitus without complications
CPT/HCPCS: 83036

== ENCOUNTER → 2020-03-16 | Outpatient (CLI) | payer MEDICARE, OTHER ==
[2020-03-16 20:25] LABS: BASOPHILS % (AUTO) 0.3 % (0.0-2.0); EOSINOPHILS % (AUTO) 0 % (1.0-6.0); HEMATOCRIT 48.8 % (41-53); LYMPHOCYTES # (AUTO) 1.7 K/uL (1.0-4.8); LYMPHOCYTES % (AUTO) 20.3 % (22.0-44.0); MEAN CORPUSCULAR HEMOGLOBIN 31.5 pg (26.0-34.0); MEAN CORPUSCULAR HGB CONC 32.8 G/dL (31.0-37.0); MEAN CORPUSCULAR VOLUME 96 fL (80-100); MONOCYTES # (AUTO) 0.6 K/uL (0.1-1.0); MONOCYTES % (AUTO) 6.5 % (2.0-9.0); NEUTROPHILS # (AUTO) 6.3 K/uL (1.8-7.7); NEUTROPHILS % (AUTO) 72.9 % (40.0-70.0); PLATELET COUNT (AUTO) 222 K/uL (150-450); RED BLOOD CELL COUNT(AUTO) 5.08 MIL/uL (4.50-5.90); RED CELL DISTRIBUTION WIDTH 15.7 % (11.5-14.5)
== END | disposition home or self-care (01) ==
LOC: LABPV 11:30
PROVIDERS: ATTEND Psychiatry & Neurology Psychiatry
DX: F25.9 Schizoaffective disorder, unspecified (principal)

== ENCOUNTER → 2020-04-13 | Outpatient (CLI) | payer MEDICARE, MEDICAID ==
[2020-04-13 16:29] LABS: BASOPHILS % (AUTO) 0.5 % (0.0-2.0); EOSINOPHILS % (AUTO) 0 % (1.0-6.0); HEMATOCRIT 51.5 % (41-53); LYMPHOCYTES # (AUTO) 1.7 K/uL (1.0-4.8); LYMPHOCYTES % (AUTO) 21.8 % (22.0-44.0); MEAN CORPUSCULAR HEMOGLOBIN 31.6 pg (26.0-34.0); MEAN CORPUSCULAR VOLUME 96 fL (80-100); MONOCYTES # (AUTO) 0.6 K/uL (0.1-1.0); MONOCYTES % (AUTO) 7.3 % (2.0-9.0); NEUTROPHILS # (AUTO) 5.5 K/uL (1.8-7.7); NEUTROPHILS % (AUTO) 70.4 % (40.0-70.0); PLATELET COUNT (AUTO) 262 K/uL (150-450); RED BLOOD CELL COUNT(AUTO) 5.39 MIL/uL (4.50-5.90); RED CELL DISTRIBUTION WIDTH 15.9 % (11.5-14.5)
== END | disposition home or self-care (01) ==
LOC: LABPV 12:56
PROVIDERS: ATTEND Psychiatry & Neurology Psychiatry
DX: F25.9 Schizoaffective disorder, unspecified (principal)

== ENCOUNTER → 2020-06-15 | Outpatient (CLI) | payer MEDICARE, MEDICAID ==
[2020-06-15 15:41] LABS: BASOPHILS % (AUTO) 0.3 % (0.0-2.0); EOSINOPHILS % (AUTO) 0 % (1.0-6.0); HEMATOCRIT 45.1 % (41-53); HEMOGLOBIN 14.8 g/dL (13.5-17.5); LYMPHOCYTES # (AUTO) 1.3 K/uL (1.0-4.8); MEAN CORPUSCULAR HEMOGLOBIN 30.9 pg (26.0-34.0); MEAN CORPUSCULAR HGB CONC 32.8 G/dL (31.0-37.0); MEAN CORPUSCULAR VOLUME 94 fL (80-100); MONOCYTES # (AUTO) 0.6 K/uL (0.1-1.0); MONOCYTES % (AUTO) 8.2 % (2.0-9.0); NEUTROPHILS # (AUTO) 5.8 K/uL (1.8-7.7); NEUTROPHILS % (AUTO) 74.5 % (40.0-70.0); PLATELET COUNT (AUTO) 190 K/uL (150-450); RED BLOOD CELL COUNT(AUTO) 4.79 MIL/uL (4.50-5.90); RED CELL DISTRIBUTION WIDTH 15.5 % (11.5-14.5)
== END | disposition home or self-care (01) ==
LOC: LABPV 13:02
PROVIDERS: ATTEND Psychiatry & Neurology Psychiatry
DX: F25.9 Schizoaffective disorder, unspecified (principal)

== ENCOUNTER 2020-06-16 10:06 | Inpatient (IN) | payer MEDICARE, MEDICAID ==
[~2020-06-16] VITALS: Ht 177.8 cm; Wt 83.8 kg
[2020-06-16] MEDS ORDERED: ALBUTEROL SULFATE 5 MG/ML 20 ML NEB SOLN [BULK] NEB ONE (10:30)
[2020-06-16 11:09] LABS: BASOPHILS % (AUTO) 0.2 % (0.0-2.0); EOSINOPHILS % (AUTO) 0 % (1.0-6.0); HEMATOCRIT 42.7 % (41-53); LYMPHOCYTES # (AUTO) 0.8 K/uL (1.0-4.8); LYMPHOCYTES % (AUTO) 6.4 % (22.0-44.0); MEAN CORPUSCULAR HGB CONC 32.8 G/dL (31.0-37.0); MEAN CORPUSCULAR VOLUME 94 fL (80-100); MONOCYTES # (AUTO) 0.9 K/uL (0.1-1.0); MONOCYTES % (AUTO) 7.4 % (2.0-9.0); NEUTROPHILS # (AUTO) 10.4 K/uL (1.8-7.7); PLATELET COUNT (AUTO) 169 K/uL (150-450); RED BLOOD CELL COUNT(AUTO) 4.53 MIL/uL (4.50-5.90); RED CELL DISTRIBUTION WIDTH 15.2 % (11.5-14.5)
[2020-06-16 11:23] LABS: ALANINE AMINOTRANSFERASE 12 U/L (12-78); ALBUMIN 2.9 g/dL (3.4-5.0); ALKALINE PHOSPHATASE 78 U/L (46-116); ANION GAP -2 mmol/L (8-16); ASPARTATE AMINOTRANSFERASE 12 U/L (15-37); BILIRUBIN,TOTAL 0.5 mg/dL (0.1-1.0); CALCIUM, TOTAL 9.2 mg/dL (8.8-10.5); CHLORIDE 98 mmol/L (98-107); CREATININE 1.28 mg/dL (0.60-1.30); GLOMERULAR FILTR. RATE CALC 56 mL/min (>60); GLUCOSE,RANDOM 106 mg/dL (70-110); LIPASE 43 U/L (73-393); POTASSIUM 4.4 mmol/L (3.5-5.1); SODIUM SERUM 137 mmol/L (136-145); TOTAL PROTEIN, SERUM 7.9 g/dL (6.4-8.2); UREA NITROGEN, BLOOD 23 mg/dL (7-18)
[2020-06-16 11:27] LABS: LACTIC ACID 0.4 mmol/L (0.4-2.0)
[2020-06-16 11:30] LABS: CARBON DIOXIDE 41 mmol/L (22-29)
[2020-06-16 11:35] LABS: B-TYPE NATRIURETIC PEPTIDE 93 pg/mL (0-100)
[2020-06-16] MEDS ORDERED: DEXAMETHASONE SOD PHOS 4 MG/ML 5 ML VIAL IVP ONE (12:15)
[2020-06-16] MEDS ORDERED: ALBUTEROL SULFATE/IPRATROPIUM 100-20 MCG/SPRAY 4 GM INHALER IH PRN (13:15)
[2020-06-16 13:21] LABS: ABG A-A DIFF O2 70.9 mmHg (10-20.0); ABG BASE EXCESS 19.6 mmol/L (-2.0-3.0); ABG HCO3 38.2 mmol/L (22.0-26.0); ABG METHEMOGLOBIN 0.1 % (0.0-1.5); ABG OXYGEN CONTENT 18.7 mL/dL (15.0-23.0); ABG OXYGEN SATURATION 96.7 % (95.0-98.0); ABG OXYHEMOGLOBIN 91.3 % (94.0-100.0); ABG PH 7.263 (7.35-7.450); ABG TOTAL HEMOGLOBIN 14.5 G/dL (12.0-18.0); PO2, ARTERIAL BG 93.2 mmHg (79.0-87.0); SOURCE, BLOOD GAS ARTERIAL; TEMPERATURE, FAHRENHEIT, BG 98.5 FAHREN (96.0-98.6)
[2020-06-16 13:22] LABS: ABG CARBOXYHEMOGLOBIN 5.5 % (0.0-1.5); ABG PCO2 105 mmHg (35-45); O2 DEVICE,BLOOD GAS CANNULA (ROOM AIR); SITE, BLOOD GAS LFT RADIAL
[2020-06-16 13:23] LABS: INFLUENZA TYPE A NEGATIVE FOR TYPE A (NEGATIVE); INFLUENZA TYPE B NEGATIVE FOR TYPE B (NEGATIVE)
[2020-06-16 13:30] LABS: COVID AG,FIA SOURCE NASOPHARYNGEAL
[2020-06-16] MEDS ORDERED: BENZONATATE 100 MG CAPSULE PO PRN (13:30)
[2020-06-16] MEDS ORDERED: DOCUSATE SODIUM 100 MG CAPSULE PO PRN (13:30)
[2020-06-16] MEDS ORDERED: ONDANSETRON HCL 4 MG/2 ML VIAL IVP PRN (13:30)
[2020-06-16] MEDS ORDERED: 0.9% SODIUM CHLORIDE 10 ML SYRINGE IVP PRN (13:30)
[2020-06-16] MEDS ORDERED: MAGNESIUM HYDROXIDE SUSPENSION 30 ML UDCUP PO PRN (13:30)
[2020-06-16] MEDS ORDERED: ACETAMINOPHEN 325 MG TABLET PO PRN (13:30)
[2020-06-16] MEDS ORDERED: BISACODYL 10 MG RECTAL RECTAL SUPPOSITORY PR PRN (13:30)
[2020-06-16] MEDS ORDERED: HEPARIN SODIUM,PORCINE 5,000 UNITS/ML VIAL IVP PRN ×2 (13:30)
[2020-06-16 13:46] LABS: LITHIUM < 0.20 mmol/L (0.60-1.20)
[2020-06-16 13:58] LABS: D-DIMER 0.27 mg/L FEU (0.00-0.50); PROTHROMBIN TIME 10.2 SEC (9.4-11.6)
[2020-06-16 14:03] LABS: FERRITIN 59 ng/mL (26-388)
[2020-06-16] MEDS: ALBUTEROL SULFATE/IPRATROPIUM 100-20 MCG/SPRAY 4 GM INHALER IH SCH ×2 (14:23→22:53)
[2020-06-16] MEDS: CefTRIAXone 1 GM/DEXTROSE 50 ML IV SCH (14:25)
[2020-06-16] MEDS: PANTOPRAZOLE SODIUM 40 MG DR TABLET PO SCH (14:25)
[2020-06-16] MEDS: DOXYCYCLINE HYCLATE 100 MG in DEXTROSE 5%-WATER 100 ML IV SCH (15:17)
[2020-06-16] MEDS: GABAPENTIN 300 MG CAPSULE PO SCH ×2 (19:44→21:00)
[2020-06-16] MEDS: MethylPREDNISolone SOD SUCC 40 MG/ML VIAL IVP SCH (19:44)
[2020-06-16] MEDS ORDERED: NICOTINE 21 MG/24 HOUR PATCH TD ONE (20:15)
[2020-06-16] MEDS: DIVALPROEX SODIUM 500 MG DR TABLET PO SCH (21:52)
[2020-06-16] MEDS: LITHIUM CARBONATE 300 MG CAPSULE PO SCH (21:53)
[2020-06-16] MEDS: CloZAPine 100 MG TABLET PO SCH (21:53)
[2020-06-17] MEDS: ALBUTEROL SULFATE/IPRATROPIUM 100-20 MCG/SPRAY 4 GM INHALER IH SCH ×4 (00:10→18:30)
[2020-06-17] MEDS: MethylPREDNISolone SOD SUCC 40 MG/ML VIAL IVP SCH ×4 (01:22→18:30)
[2020-06-17] MEDS: DOXYCYCLINE HYCLATE 100 MG in DEXTROSE 5%-WATER 100 ML IV SCH ×2 (03:12→16:15)
[2020-06-17 05:05] LABS: BASOPHILS % (AUTO) 0.6 % (0.0-2.0); EOSINOPHILS % (AUTO) 0.1 % (1.0-6.0); HEMOGLOBIN 14.4 g/dL (13.5-17.5); LYMPHOCYTES # (AUTO) 0.4 K/uL (1.0-4.8); LYMPHOCYTES % (AUTO) 6.1 % (22.0-44.0); MEAN CORPUSCULAR HEMOGLOBIN 30.9 pg (26.0-34.0); MEAN CORPUSCULAR HGB CONC 32.8 G/dL (31.0-37.0); MEAN CORPUSCULAR VOLUME 94 fL (80-100); MONOCYTES # (AUTO) 0.1 K/uL (0.1-1.0); MONOCYTES % (AUTO) 1.6 % (2.0-9.0); NEUTROPHILS # (AUTO) 5.3 K/uL (1.8-7.7); PLATELET COUNT (AUTO) 144 K/uL (150-450); RED BLOOD CELL COUNT(AUTO) 4.66 MIL/uL (4.50-5.90); RED CELL DISTRIBUTION WIDTH 14.9 % (11.5-14.5)
[2020-06-17 05:07] LABS: NEUTROPHILS % (AUTO) 91.6 % (40.0-70.0)
[2020-06-17 05:26] LABS: ALANINE AMINOTRANSFERASE 10 U/L (12-78); ALBUMIN 2.9 g/dL (3.4-5.0); ALKALINE PHOSPHATASE 82 U/L (46-116); ANION GAP 8 mmol/L (8-16); ASPARTATE AMINOTRANSFERASE 14 U/L (15-37); BILIRUBIN,TOTAL 0.4 mg/dL (0.1-1.0); C-REACTIVE PROTEIN QUANT 3.13 mg/dL (0.00-0.30); CALCIUM, TOTAL 9.4 mg/dL (8.8-10.5); CARBON DIOXIDE 40 mmol/L (22-29); CHLORIDE 94 mmol/L (98-107); CREATININE 1.09 mg/dL (0.60-1.30); FERRITIN 69 ng/mL (26-388); GLOMERULAR FILTR. RATE CALC > 60 mL/min (>60); GLUCOSE,RANDOM 165 mg/dL (70-110); POTASSIUM 4.4 mmol/L (3.5-5.1); SODIUM SERUM 142 mmol/L (136-145); TOTAL PROTEIN, SERUM 8.2 g/dL (6.4-8.2); UREA NITROGEN, BLOOD 27 mg/dL (7-18)
[2020-06-17] MEDS: TAMSULOSIN HCL 0.4 MG CAPSULE PO SCH (09:02)
[2020-06-17] MEDS: PANTOPRAZOLE SODIUM 40 MG DR TABLET PO SCH (09:02)
[2020-06-17 10:04] LABS: PROTHROMBIN TIME 10.2 SEC (9.4-11.6)
[2020-06-17] MEDS: FUROSEMIDE 40 MG TABLET PO SCH (10:22)
[2020-06-17] MEDS: GABAPENTIN 300 MG CAPSULE PO SCH ×3 (10:23→20:53)
[2020-06-17] MEDS: ATORVASTATIN CALCIUM 40 MG TABLET PO SCH (10:25)
[2020-06-17 13:42] VITALS: BP 152/80
[2020-06-17] MEDS ORDERED: SODIUM CHLORIDE 0.9% 250 ML IV ONE (14:44)
[2020-06-17] MEDS: CefTRIAXone 1 GM/DEXTROSE 50 ML IV SCH (14:55)
[2020-06-17 16:04] VITALS: BP 131/80
[2020-06-17] MEDS: NICOTINE 14 MG/24 HOUR PATCH TD SCH (16:24)
[2020-06-17 19:33] VITALS: BP 134/73
[2020-06-17] MEDS: DIVALPROEX SODIUM 500 MG DR TABLET PO SCH (20:53)
[2020-06-17] MEDS: LITHIUM CARBONATE 300 MG CAPSULE PO SCH (20:53)
[2020-06-17] MEDS: CloZAPine 100 MG TABLET PO SCH (20:55)
[2020-06-17] MEDS: HEPARIN SODIUM 25000 UNITS/D5W 250 ML IV PRN (21:26)
[2020-06-18 00:15] VITALS: BP 150/89
[2020-06-18] MEDS: MethylPREDNISolone SOD SUCC 40 MG/ML VIAL IVP SCH ×4 (00:25→17:39)
[2020-06-18] MEDS ORDERED: SODIUM CHLORIDE 0.9% 500 ML IV ONE (02:11)
[2020-06-18] MEDS: DOXYCYCLINE HYCLATE 100 MG in DEXTROSE 5%-WATER 100 ML IV SCH ×2 (02:15→14:10)
[2020-06-18 03:49] LABS: BASOPHILS % (AUTO) 0.1 % (0.0-2.0); EOSINOPHILS % (AUTO) 0 % (1.0-6.0); HEMATOCRIT 41.4 % (41-53); HEMOGLOBIN 13.7 g/dL (13.5-17.5); LYMPHOCYTES # (AUTO) 0.6 K/uL (1.0-4.8); LYMPHOCYTES % (AUTO) 6.5 % (22.0-44.0); MEAN CORPUSCULAR HEMOGLOBIN 31.1 pg (26.0-34.0); MEAN CORPUSCULAR HGB CONC 33.1 G/dL (31.0-37.0); MEAN CORPUSCULAR VOLUME 94 fL (80-100); MONOCYTES # (AUTO) 0.2 K/uL (0.1-1.0); MONOCYTES % (AUTO) 2.6 % (2.0-9.0); NEUTROPHILS # (AUTO) 7.8 K/uL (1.8-7.7); PLATELET COUNT (AUTO) 159 K/uL (150-450); RED BLOOD CELL COUNT(AUTO) 4.42 MIL/uL (4.50-5.90); RED CELL DISTRIBUTION WIDTH 15.2 % (11.5-14.5)
[2020-06-18 03:57] VITALS: BP 135/75
[2020-06-18 03:59] LABS: NEUTROPHILS % (AUTO) 90.8 % (40.0-70.0)
[2020-06-18 04:01] LABS: D-DIMER 0.19 mg/L FEU (0.00-0.50)
[2020-06-18 04:16] LABS: ALBUMIN 2.6 g/dL (3.4-5.0); BILIRUBIN,TOTAL 0.2 mg/dL (0.1-1.0); CALCIUM, TOTAL 9.3 mg/dL (8.8-10.5); CREATININE 1.23 mg/dL (0.60-1.30); POTASSIUM 4.6 mmol/L (3.5-5.1); TOTAL PROTEIN, SERUM 7.2 g/dL (6.4-8.2)
[2020-06-18] MEDS: ALBUTEROL SULFATE/IPRATROPIUM 100-20 MCG/SPRAY 4 GM INHALER IH SCH ×4 (06:15→17:40)
[2020-06-18] MEDS: FUROSEMIDE 40 MG TABLET PO SCH (08:29)
[2020-06-18] MEDS: ATORVASTATIN CALCIUM 40 MG TABLET PO SCH (08:29)
[2020-06-18] MEDS: PANTOPRAZOLE SODIUM 40 MG DR TABLET PO SCH (08:29)
[2020-06-18] MEDS: TAMSULOSIN HCL 0.4 MG CAPSULE PO SCH (08:29)
[2020-06-18] MEDS: GABAPENTIN 300 MG CAPSULE PO SCH ×3 (08:29→20:08)
[2020-06-18] MEDS: NICOTINE 14 MG/24 HOUR PATCH TD SCH (08:30)
[2020-06-18 08:41] VITALS: BP 150/84
[2020-06-18 11:33] VITALS: BP 120/78
[2020-06-18] MEDS: CefTRIAXone 1 GM/DEXTROSE 50 ML IV SCH (12:52)
[2020-06-18] MEDS: HEPARIN SODIUM 25000 UNITS/D5W 250 ML IV PRN (14:21)
[2020-06-18 16:50] VITALS: BP 146/85
[2020-06-18] MEDS: CloZAPine 100 MG TABLET PO SCH (20:08)
[2020-06-18] MEDS: DIVALPROEX SODIUM 500 MG DR TABLET PO SCH (20:09)
[2020-06-18] MEDS: LITHIUM CARBONATE 300 MG CAPSULE PO SCH (20:09)
[2020-06-18 21:00] VITALS: BP 140/78
[2020-06-19] VITALS: BP 121/62
[2020-06-19] MEDS: MethylPREDNISolone SOD SUCC 40 MG/ML VIAL IVP SCH ×4 (00:30→18:17)
[2020-06-19] MEDS: DOXYCYCLINE HYCLATE 100 MG in DEXTROSE 5%-WATER 100 ML IV SCH ×2 (03:04→15:18)
[2020-06-19 04:00] VITALS: BP 145/70
[2020-06-19] MEDS: ALBUTEROL SULFATE/IPRATROPIUM 100-20 MCG/SPRAY 4 GM INHALER IH SCH ×4 (05:53→18:17)
[2020-06-19 06:49] LABS: EOSINOPHILS % (AUTO) 0 % (1.0-6.0); HEMATOCRIT 39.7 % (41-53); HEMOGLOBIN 13.2 g/dL (13.5-17.5); LYMPHOCYTES # (AUTO) 0.3 K/uL (1.0-4.8); LYMPHOCYTES % (AUTO) 3.8 % (22.0-44.0); MEAN CORPUSCULAR HEMOGLOBIN 30.7 pg (26.0-34.0); MEAN CORPUSCULAR HGB CONC 33.1 G/dL (31.0-37.0); MEAN CORPUSCULAR VOLUME 93 fL (80-100); MONOCYTES # (AUTO) 0.2 K/uL (0.1-1.0); MONOCYTES % (AUTO) 2.4 % (2.0-9.0); NEUTROPHILS # (AUTO) 8.5 K/uL (1.8-7.7); PLATELET COUNT (AUTO) 165 K/uL (150-450); RED BLOOD CELL COUNT(AUTO) 4.28 MIL/uL (4.50-5.90); RED CELL DISTRIBUTION WIDTH 15.1 % (11.5-14.5)
[2020-06-19 07:06] LABS: NEUTROPHILS % (AUTO) 93.8 % (40.0-70.0)
[2020-06-19 07:07] LABS: D-DIMER 0.2 mg/L FEU (0.00-0.50)
[2020-06-19 07:39] VITALS: BP 138/66
[2020-06-19 07:43] LABS: ALANINE AMINOTRANSFERASE 12 U/L (12-78); ALBUMIN 2.5 g/dL (3.4-5.0); ALKALINE PHOSPHATASE 60 U/L (46-116); ANION GAP -3 mmol/L (8-16); ASPARTATE AMINOTRANSFERASE 14 U/L (15-37); BILIRUBIN,TOTAL 0.3 mg/dL (0.1-1.0); CALCIUM, TOTAL 9.1 mg/dL (8.8-10.5); CHLORIDE 97 mmol/L (98-107); CHOL/HDL RATIO 2.7 (4.2-7.3); CHOLESTEROL 109 mg/dL (131-200); CREATININE 1.07 mg/dL (0.60-1.30); FERRITIN 65 ng/mL (26-388); GLOMERULAR FILTR. RATE CALC > 60 mL/min (>60); GLUCOSE,RANDOM 159 mg/dL (70-110); HDL CHOLESTEROL 40 mg/dL (40-60); LDL CHOL (CALC.) 39 mg/dL (0-130); POTASSIUM 4.3 mmol/L (3.5-5.1); SODIUM SERUM 135 mmol/L (136-145); TOTAL PROTEIN, SERUM 6.7 g/dL (6.4-8.2); TRIGLYCERIDES 149 mg/dL (15-150); UREA NITROGEN, BLOOD 34 mg/dL (7-18)
[2020-06-19 07:58] LABS: CARBON DIOXIDE 41 mmol/L (22-29)
[2020-06-19] MEDS: TAMSULOSIN HCL 0.4 MG CAPSULE PO SCH (09:05)
[2020-06-19] MEDS: GABAPENTIN 300 MG CAPSULE PO SCH ×3 (09:05→20:37)
[2020-06-19] MEDS: FUROSEMIDE 40 MG TABLET PO SCH (09:05)
[2020-06-19] MEDS: NICOTINE 14 MG/24 HOUR PATCH TD SCH (09:05)
[2020-06-19] MEDS: ATORVASTATIN CALCIUM 40 MG TABLET PO SCH (09:06)
[2020-06-19] MEDS: PANTOPRAZOLE SODIUM 40 MG DR TABLET PO SCH (09:06)
[2020-06-19 12:15] VITALS: BP 110/56
[2020-06-19] MEDS ORDERED: DEXTROSE 50%-WATER 25 GM/50 ML SYRINGE IVP PRN (13:30)
[2020-06-19] MEDS: CefTRIAXone 1 GM/DEXTROSE 50 ML IV SCH (14:05)
[2020-06-19] MEDS: HEPARIN SODIUM 25000 UNITS/D5W 250 ML IV PRN (14:15)
[2020-06-19 16:05] VITALS: BP 145/72
[2020-06-19] MEDS ORDERED: GABAPENTIN 300 MG CAPSULE PO PRN (20:30)
[2020-06-19] MEDS ORDERED: OLANZapine 5 MG RAPDIS TABLET PO PRN (20:30)
[2020-06-19] MEDS: CloZAPine 100 MG TABLET PO SCH (20:37)
[2020-06-19] MEDS: LITHIUM CARBONATE 300 MG CAPSULE PO SCH (20:37)
[2020-06-19] MEDS: DIVALPROEX SODIUM 500 MG DR TABLET PO SCH (20:37)
[2020-06-19] MEDS: INSULIN LISPRO 100 UNITS/ML SQ PRN (20:37)
[2020-06-19 21:21] VITALS: BP 131/78
[2020-06-20] MEDS: ALBUTEROL SULFATE/IPRATROPIUM 100-20 MCG/SPRAY 4 GM INHALER IH SCH ×4 (00:53→17:45)
[2020-06-20] MEDS: MethylPREDNISolone SOD SUCC 40 MG/ML VIAL IVP SCH ×4 (00:53→17:45)
[2020-06-20] MEDS: DOXYCYCLINE HYCLATE 100 MG in DEXTROSE 5%-WATER 100 ML IV SCH ×2 (03:27→14:07)
[2020-06-20 04:10] VITALS: BP 127/68
[2020-06-20 05:07] LABS: GLUCOMETER DEV NAME(LOC) 5S.1; GLUCOSE,POINT OF CARE 186 MG/DL (70-110)
[2020-06-20 06:46] LABS: BASOPHILS % (AUTO) 0.1 % (0.0-2.0); EOSINOPHILS % (AUTO) 0 % (1.0-6.0); HEMATOCRIT 42.8 % (41-53); HEMOGLOBIN 13.9 g/dL (13.5-17.5); LYMPHOCYTES # (AUTO) 0.3 K/uL (1.0-4.8); LYMPHOCYTES % (AUTO) 4.4 % (22.0-44.0); MEAN CORPUSCULAR HEMOGLOBIN 30.7 pg (26.0-34.0); MEAN CORPUSCULAR HGB CONC 32.6 G/dL (31.0-37.0); MEAN CORPUSCULAR VOLUME 94 fL (80-100); MONOCYTES # (AUTO) 0.2 K/uL (0.1-1.0); MONOCYTES % (AUTO) 2.9 % (2.0-9.0); NEUTROPHILS # (AUTO) 6.7 K/uL (1.8-7.7); PLATELET COUNT (AUTO) 167 K/uL (150-450); RED BLOOD CELL COUNT(AUTO) 4.53 MIL/uL (4.50-5.90); RED CELL DISTRIBUTION WIDTH 15.3 % (11.5-14.5)
[2020-06-20 07:36] LABS: ALANINE AMINOTRANSFERASE 16 U/L (12-78); ALBUMIN 2.6 g/dL (3.4-5.0); ALKALINE PHOSPHATASE 57 U/L (46-116); ASPARTATE AMINOTRANSFERASE 14 U/L (15-37); BILIRUBIN,TOTAL 0.3 mg/dL (0.1-1.0); C-REACTIVE PROTEIN QUANT 0.07 mg/dL (0.00-0.30); CALCIUM, TOTAL 9.5 mg/dL (8.8-10.5); CREATININE 1.06 mg/dL (0.60-1.30); FERRITIN 68 ng/mL (26-388); GLOMERULAR FILTR. RATE CALC > 60 mL/min (>60); GLUCOSE,RANDOM 208 mg/dL (70-110); TOTAL PROTEIN, SERUM 6.9 g/dL (6.4-8.2); UREA NITROGEN, BLOOD 31 mg/dL (7-18)
[2020-06-20 07:43] LABS: NEUTROPHILS % (AUTO) 92.6 % (40.0-70.0)
[2020-06-20 07:49] LABS: D-DIMER 0.19 mg/L FEU (0.00-0.50)
[2020-06-20 08:22] LABS: ANION GAP 5 mmol/L (8-16); CHLORIDE 95 mmol/L (98-107); POTASSIUM 4.7 mmol/L (3.5-5.1); SODIUM SERUM 137 mmol/L (136-145)
[2020-06-20 09:36] VITALS: BP 119/64
[2020-06-20] MEDS: ATORVASTATIN CALCIUM 40 MG TABLET PO SCH (10:38)
[2020-06-20] MEDS: PANTOPRAZOLE SODIUM 40 MG DR TABLET PO SCH (10:38)
[2020-06-20] MEDS: FUROSEMIDE 40 MG TABLET PO SCH (10:38)
[2020-06-20] MEDS: TAMSULOSIN HCL 0.4 MG CAPSULE PO SCH (10:38)
[2020-06-20] MEDS: GABAPENTIN 300 MG CAPSULE PO SCH ×3 (10:38→20:13)
[2020-06-20] MEDS: NICOTINE 14 MG/24 HOUR PATCH TD SCH (10:39)
[2020-06-20] MEDS: CefTRIAXone 1 GM/DEXTROSE 50 ML IV SCH (12:21)
[2020-06-20 12:34] VITALS: BP 147/91
[2020-06-20 13:58] LABS: GLUCOMETER DEV NAME(LOC) 5S.2B; GLUCOSE,POINT OF CARE 158 MG/DL (70-110)
[2020-06-20] MEDS: INSULIN LISPRO 100 UNITS/ML SQ PRN ×2 (14:10→20:54)
[2020-06-20 16:00] VITALS: BP 134/82
[2020-06-20] MEDS: DIVALPROEX SODIUM 250 MG DR TABLET PO SCH ×2 (17:45→20:13)
[2020-06-20] MEDS: CloZAPine 100 MG TABLET PO SCH (20:13)
[2020-06-20] MEDS: LITHIUM CARBONATE 300 MG CAPSULE PO SCH (20:13)
[2020-06-20 21:53] VITALS: BP 145/70
[2020-06-21] MEDS: MethylPREDNISolone SOD SUCC 40 MG/ML VIAL IVP SCH ×4 (00:23→18:07)
[2020-06-21] MEDS: ALBUTEROL SULFATE/IPRATROPIUM 100-20 MCG/SPRAY 4 GM INHALER IH SCH ×4 (00:24→18:07)
[2020-06-21 01:00] LABS: GLUCOMETER DEV NAME(LOC) 5S.2B; GLUCOSE,POINT OF CARE 252 MG/DL (70-110)
[2020-06-21 01:12] VITALS: BP 135/55
[2020-06-21] MEDS: DOXYCYCLINE HYCLATE 100 MG in DEXTROSE 5%-WATER 100 ML IV SCH ×2 (02:14→16:25)
[2020-06-21 04:32] VITALS: BP 135/61
[2020-06-21] MEDS: DIVALPROEX SODIUM 250 MG DR TABLET PO SCH ×4 (08:05→20:02)
[2020-06-21] MEDS: FUROSEMIDE 40 MG TABLET PO SCH (08:05)
[2020-06-21] MEDS: PANTOPRAZOLE SODIUM 40 MG DR TABLET PO SCH (08:05)
[2020-06-21] MEDS: TAMSULOSIN HCL 0.4 MG CAPSULE PO SCH (08:05)
[2020-06-21] MEDS: ATORVASTATIN CALCIUM 40 MG TABLET PO SCH (08:05)
[2020-06-21] MEDS: NICOTINE 14 MG/24 HOUR PATCH TD SCH (08:05)
[2020-06-21] MEDS: GABAPENTIN 300 MG CAPSULE PO SCH ×3 (08:05→20:01)
[2020-06-21 08:23] VITALS: BP 125/61
[2020-06-21] MEDS: ENOXAPARIN SODIUM 40 MG/0.4 ML PF SYRINGE SQ SCH (08:25)
[2020-06-21 11:20] LABS: CALCIUM, TOTAL 9.4 mg/dL (8.8-10.5); CREATININE 1.27 mg/dL (0.60-1.30); POTASSIUM 4.8 mmol/L (3.5-5.1)
[2020-06-21 11:23] LABS: PROTHROMBIN TIME 10.7 SEC (9.4-11.6)
[2020-06-21] MEDS ORDERED: FentaNYL CITRATE-PF 100 MCG/2 ML VIAL ONE (11:44)
[2020-06-21] MEDS ORDERED: MIDAZOLAM HCL 2 MG/2 ML VIAL ONE (11:44)
[2020-06-21] MEDS ORDERED: FentaNYL CITRATE-PF 100 MCG/2 ML VIAL IVP ONE (12:45)
[2020-06-21] MEDS ORDERED: MIDAZOLAM HCL 2 MG/2 ML VIAL IVP ONE (12:45)
[2020-06-21] MEDS: CefTRIAXone 1 GM/DEXTROSE 50 ML IV SCH (15:25)
[2020-06-21 16:13] LABS: GLUCOMETER DEV NAME(LOC) 5S.2B; GLUCOSE,POINT OF CARE 190 MG/DL (70-110)
[2020-06-21 16:26] VITALS: BP 150/92
[2020-06-21] MEDS: CloZAPine 100 MG TABLET PO SCH (20:02)
[2020-06-21] MEDS: LITHIUM CARBONATE 300 MG CAPSULE PO SCH (20:02)
[2020-06-21] MEDS: INSULIN LISPRO 100 UNITS/ML SQ PRN (20:09)
[2020-06-21 20:11] LABS: GLUCOMETER DEV NAME(LOC) 5N.3; GLUCOSE,POINT OF CARE 192 MG/DL (70-110)
[2020-06-21 20:37] VITALS: BP 137/95
[2020-06-22] MEDS: ALBUTEROL SULFATE/IPRATROPIUM 100-20 MCG/SPRAY 4 GM INHALER IH SCH ×4 (00:09→17:18)
[2020-06-22] MEDS: MethylPREDNISolone SOD SUCC 40 MG/ML VIAL IVP SCH ×4 (00:10→17:18)
[2020-06-22 00:26] VITALS: BP 150/89
[2020-06-22] MEDS ORDERED: SODIUM CHLORIDE 0.9% 250 ML IV ONE (01:10)
[2020-06-22 02:18] LABS: GLUCOMETER DEV NAME(LOC) 5S.2B; GLUCOSE,POINT OF CARE 236 MG/DL (70-110)
[2020-06-22] MEDS: DOXYCYCLINE HYCLATE 100 MG in DEXTROSE 5%-WATER 100 ML IV SCH ×2 (03:22→15:26)
[2020-06-22 05:12] VITALS: BP 153/77
[2020-06-22 07:59] VITALS: BP 144/72
[2020-06-22] MEDS: DIVALPROEX SODIUM 250 MG DR TABLET PO SCH ×4 (09:06→20:00)
[2020-06-22] MEDS: ENOXAPARIN SODIUM 40 MG/0.4 ML PF SYRINGE SQ SCH (09:07)
[2020-06-22] MEDS: NICOTINE 14 MG/24 HOUR PATCH TD SCH (09:07)
[2020-06-22] MEDS: GABAPENTIN 300 MG CAPSULE PO SCH ×3 (09:07→20:01)
[2020-06-22] MEDS: PANTOPRAZOLE SODIUM 40 MG DR TABLET PO SCH (09:08)
[2020-06-22] MEDS: FUROSEMIDE 40 MG TABLET PO SCH (09:08)
[2020-06-22] MEDS: MONTELUKAST SODIUM 10 MG TABLET PO SCH (09:08)
[2020-06-22] MEDS: ATORVASTATIN CALCIUM 40 MG TABLET PO SCH (09:08)
[2020-06-22] MEDS: MetFORMIN HCL 500 MG TABLET PO SCH (09:08)
[2020-06-22] MEDS: TAMSULOSIN HCL 0.4 MG CAPSULE PO SCH (09:08)
[2020-06-22 11:46] VITALS: BP 142/68
[2020-06-22] MEDS: INSULIN LISPRO 100 UNITS/ML SQ PRN ×2 (12:14→17:24)
[2020-06-22] MEDS: CefTRIAXone 1 GM/DEXTROSE 50 ML IV SCH (13:09)
[2020-06-22 16:25] VITALS: BP 139/79
[2020-06-22 20:07] VITALS: BP 143/83
[2020-06-22] MEDS: LITHIUM CARBONATE 300 MG CAPSULE PO SCH (21:40)
[2020-06-22] MEDS: CloZAPine 100 MG TABLET PO SCH (21:41)
[2020-06-23 00:44] VITALS: BP 121/71
[2020-06-23] MEDS: MethylPREDNISolone SOD SUCC 40 MG/ML VIAL IVP SCH ×4 (00:47→17:54)
[2020-06-23 00:52] LABS: GLUCOMETER DEV NAME(LOC) 5S.2B; GLUCOSE,POINT OF CARE 320 MG/DL (70-110)
[2020-06-23 00:52] LABS: GLUCOMETER DEV NAME(LOC) 5S.2B; GLUCOSE,POINT OF CARE 251 MG/DL (70-110)
[2020-06-23] MEDS: DOXYCYCLINE HYCLATE 100 MG in DEXTROSE 5%-WATER 100 ML IV SCH (03:20)
[2020-06-23 05:40] VITALS: BP 139/81
[2020-06-23] MEDS: INSULIN LISPRO 100 UNITS/ML SQ PRN ×2 (06:49→10:22)
[2020-06-23 08:00] VITALS: BP 137/68
[2020-06-23] MEDS: ATORVASTATIN CALCIUM 40 MG TABLET PO SCH (08:10)
[2020-06-23] MEDS: MONTELUKAST SODIUM 10 MG TABLET PO SCH (08:10)
[2020-06-23] MEDS: DIVALPROEX SODIUM 250 MG DR TABLET PO SCH ×3 (08:11→17:53)
[2020-06-23] MEDS: PANTOPRAZOLE SODIUM 40 MG DR TABLET PO SCH (08:11)
[2020-06-23] MEDS: TAMSULOSIN HCL 0.4 MG CAPSULE PO SCH (08:11)
[2020-06-23] MEDS: FUROSEMIDE 40 MG TABLET PO SCH (08:11)
[2020-06-23] MEDS: MetFORMIN HCL 500 MG TABLET PO SCH (08:11)
[2020-06-23] MEDS: GABAPENTIN 300 MG CAPSULE PO SCH ×2 (08:11→16:11)
[2020-06-23] MEDS: NICOTINE 14 MG/24 HOUR PATCH TD SCH (08:11)
[2020-06-23] MEDS: ENOXAPARIN SODIUM 40 MG/0.4 ML PF SYRINGE SQ SCH (08:12)
[2020-06-23 12:00] VITALS: BP 150/82
[2020-06-23] MEDS: ALBUTEROL SULFATE/IPRATROPIUM 100-20 MCG/SPRAY 4 GM INHALER IH SCH ×3 (12:00→17:53)
[2020-06-23 16:26] VITALS: BP 137/78
[2020-06-24] MEDS ORDERED: PredniSONE 20 MG TABLET PO SCH (09:00)
== END 2020-06-23 18:55 | disposition home or self-care (01) | DRG 193 ==
LOC: EMS 10:06 → 5N 06-17 10:21 → 5S 06-22 09:53
PROVIDERS: ADMIT Internal Medicine; ATTEND Internal Medicine
PROC: 0BBK3ZX Excision of Right Lung, Percutaneous Approach, Diagnostic (ICD-10-PCS; principal; 2020-06-21)
DX: J18.9 Pneumonia, unspecified organism (principal); J96.21 Acute and chronic respiratory failure with hypoxia; J96.22 Acute and chronic respiratory failure with hypercapnia; J43.9 Emphysema, unspecified; E78.00 Pure hypercholesterolemia, unspecified; F25.1 Schizoaffective disorder, depressive type; E11.9 Type 2 diabetes mellitus without complications; I50.9 Heart failure, unspecified; I11.0 Hypertensive heart disease with heart failure; D64.9 Anemia, unspecified; E55.9 Vitamin D deficiency, unspecified; E78.1 Pure hyperglyceridemia; E78.5 Hyperlipidemia, unspecified; K59.00 Constipation, unspecified; N40.0 Benign prostatic hyperplasia without lower urinary tract symptoms; S80.211A Abrasion, right knee, initial encounter; S80.212A Abrasion, left knee, initial encounter; R91.1 Solitary pulmonary nodule; T38.0X5A Adverse effect of glucocorticoids and synthetic analogues, initial encounter; K63.5 Polyp of colon; F17.210 Nicotine dependence, cigarettes, uncomplicated; W18.39XA Other fall on same level, initial encounter; Z20.828 Contact with and (suspected) exposure to other viral communicable diseases; Z79.899 Other long term (current) drug therapy; Z91.19 Patient's noncompliance with other medical treatment and regimen; Z99.81 Dependence on supplemental oxygen; Z80.7 Family history of other malignant neoplasms of lymphoid, hematopoietic and related tissues; Z88.8 Allergy status to other drugs, medicaments and biological substances; Y92.89 Other specified places as the place of occurrence of the external cause; Y93.89 Activity, other specified; Y99.8 Other external cause status
CPT/HCPCS: 32405; 36600; 71250; 80159; 82728; 82805; 83036; 83605; 83615; 83735; 84145; 85379; 85384; 86140; 86171; 87070; 87426; 87804; 93005; 93306; 94640; 99242; G0378; J0696; J1100; J1644; J1650; J2250; J2405; J2920; J3010; J3490; J7040; J7050; J7060; 36415-L1; 36415-TC; 71045-TC; 80061-TC; U0003